=== PATIENT | female | born 1945 | race Caucasian/White ===

== ENCOUNTER 2016-12-15 17:56 | Emergency (ER) | payer MEDICARE, BC ==
--- NOTE | ~2016-12-15 | CT4 ---
[facility] A Service of [facility] & [facility] RADIOLOGY TEXT RESULTS PATIENT: SHELLY PRO LOCATION: [facility] : 49 UNIT #: [id number] AGE: [address]: Kasandra Liu MD SEX: F ORDER DR: [id number] [facility] [address] [place], [place] [address] [id number] E MR#: [id number] Acc #: [id number] NAME: SHELLY PRO : 1945 SEX: F STUDY DATE/TIME: 12/15/2016 2357 UNIT: [facility] ROOM: STUDY DESCRIPTION: CT Abd and Pelv Wo Cont Attending Physician: Kasandra Liu M.D. Ordering Physician: Kasandra Liu M.D. Primary Care Physician: No Primary Care Physician MEDICAL IMAGING REPORT This report is preliminary unless electronic signature is present EXAM Abdomen and pelvis CT, 12/15 at 2357. INDICATION Right side flank pain radiating to the back that started yesterday. TECHNIQUE Axial images were obtained through the abdomen and pelvis without contrast. Multiplanar reformats were obtained. This CT exam was performed with one or more of the following radiation dose reduction techniques: automatic exposure control, adjustment of mA and/or kV according to patient size, and iterative reconstruction. COMPARISON No comparison. FINDINGS ABDOMEN: There is emphysema. There is a small right pleural effusion with some atelectasis or pneumonia in the right lower lobe. Small hiatal hernia is present. Unopacified GI tract is otherwise grossly normal. Cholecystectomy. The exam is motion degraded. No renal or ureteral stones are seen. There is no hydronephrosis. There is a small cyst in the medial segment of the left hepatic lobe. There is extensive atherosclerotic disease. There is infrarenal abdominal aortic ectasia measuring up to 2.3 cm. PELVIS: Detail is obscured by streak artifact from the patient's left hip arthroplasty. The appearance of the arthroplasty hardware is not significantly changed from radiographs dated 03/24/2014. The appendix appears normal. The remainder of the unopacified GI tract is grossly normal, as well. Solid pelvic organs unremarkable. There is extensive lumbar degenerative disease with spondylolisthesis at L4-5. There is some STS. [facility] A Service of [facility] & [facility] RADIOLOGY TEXT RESULTS PATIENT: SHELLY PRO LOCATION: [facility] : 49 UNIT #: [id number] AGE: [address]: Kasandra Liu MD SEX: F ORDER DR: sclerosis in multiple vertebral bodies most pronounced at L2 but also seen in L1 and L3. This may all be related to degenerative disease. It could also reflect Paget disease. Metastatic disease or lymphoma is in the differential diagnosis but this is felt to be unlikely based on the remainder of the bones and the lack of any evidence of malignancy elsewhere. IMPRESSION 1. Emphysema with right lower lobe atelectasis or infiltrate and a small volume of right pleural fluid. 2. Extensive atherosclerotic disease with infrarenal abdominal aortic ectasia. No renal or ureteral stones. No hydronephrosis. 3. Cholecystectomy and left hip arthroplasty. 4. Unopacified GI tract is grossly normal, including the appendix. 5. Sclerosis and 3 lumbar vertebral bodies is nonspecific but probably benign and related to degenerative disease. Differential diagnosis does include Paget disease or even lymphoma or metastatic disease. However, neoplasm is considered less likely given the appearance of the remainder of the visualized skeleton and the lack of any soft tissue abnormalities in the abdomen or pelvis. Consider nonemergent bone scan for follow up. Dictated by... Jimmie Méndez Jr., M.D. THIS IS AN ELECTRONICALLY VERIFIED REPORT Jimmie Méndez Jr., M.D. at 12/16/2016 9:21 PM DEJUAN/nona TD: 12/16/2016 11:56 JOB #: [id number] MEDICAL IMAGING REPORT Page 1 of 1 COPY
--- NOTE | ~2016-12-15 | CR72 ---
[facility] A Service of [facility] & [facility] RADIOLOGY TEXT RESULTS PATIENT: SHELLY PRO LOCATION: [facility] : 49 UNIT #: [id number] AGE: [address]: Kasandra Liu MD SEX: F ORDER DR: [id number] [facility] [address] [place], [place] [address] [id number] E MR#: [id number] Acc #: [id number] NAME: SHELLY PRO : 1945 SEX: F STUDY DATE/TIME: 12/15/2016 23:06 UNIT: [facility] ROOM: STUDY DESCRIPTION: CR Chest Single View Portable Attending Physician: Kasandra Liu M.D. Ordering Physician: Kasandra Liu M.D. Primary Care Physician: No Primary Care Physician MEDICAL IMAGING REPORT This report is preliminary unless electronic signature is present EXAM Portable chest 12/15 23:06 INDICATION Chest pain and back pain for 2 days. History of hypertension and emphysema. FINDINGS AP portable chest compared with 07/01/2015. There is emphysema with mild bibasilar atelectasis. Cardiac and mediastinal contours are normal. No pneumothorax is seen. There is severe degenerative disease in the shoulders. IMPRESSION Emphysema with mild atelectasis in both lung bases. Dictated by... Jimmie Méndez Jr., M.D. THIS IS AN ELECTRONICALLY VERIFIED REPORT Jimmie Méndez Jr., M.D. at 12/16/2016 9:21 PM DEJUAN/sammie TD: 12/16/2016 11:45 JOB #: [id number] MEDICAL IMAGING REPORT Page 1 of 1 COPY
[~2016-12-15 17:56] MED LIST: BACLOFEN10 MG PO; CATAPRES0.1 MG PO; LASIX20 MG PO; LORTAB 10-5001 EACH PO; MOBIC15 MG PO; NON-ASPIRIN EX500 M2 PO; TACROLIMUS1 MG PO; TRAMADOL HCL50 M1 PO; VICODIN 5/500 T1 TAB PO; VITAMIN B122500 MCG PO
[2016-12-15 19:41] LABS: BASOPHIL# 0.1 X10e3 (0-0.3); BASOPHIL% 0.5 % (0-2.5); DIFF IND NO; HEMATOCRIT 47.5 % (35.0-45.0); HEMOGLOBIN 15.8 gm/dL (12.0-16.0); LYMPHOCYTE% 10.3 % (17.0-45.0); MEAN CELL VOLUME 88.9 FL (83-96); MEAN CORPUSCULAR HEMOGLOBIN 29.6 PG (28-34); MEAN CORPUSCULAR HGB CONC 33.3 g/dL (30-36); MEAN PLATELET VOLUME 7.7 FL (6.5-11.5); MONOCYTE# 0.6 X10e3 (0-1.0); MONOCYTE% 6.1 % (3.0-12.0); NEUTROPHIL# 7.8 X10e3 (1.5-7.1); NEUTROPHIL% 83.1 % (40-75); PLATELET COUNT 257 X10e3 (140-420); RED BLOOD COUNT 5.34 X10e (3.90-5.30); RED CELL DISTRIBUTION WIDTH 14.2 % (11.0-15.5); WHITE BLOOD COUNT 9.3 X10e3 (4.0-10.5)
[2016-12-15 20:12] LABS: ALBUMIN SERUM 3.9 g/dL (3.5-5.0); BILIRUBIN, DIRECT 0.2 mg/dL (0.0-0.2); BILIRUBIN,INDIRECT 1.3 mg/dL (0.0-0.9); BILIRUBIN,TOTAL 1.5 mg/dL (0.2-2.0); BUN/CREATININE RATIO 11.25; CALCIUM SERUM 9.2 mg/dL (8.4-10.2); CREATININE SERUM 0.8 mg/dL (0.6-1.4); GLOM FILT RATE Estimated 75.3 mL/min (>60); POTASSIUM 4.5 mmol/L (3.5-5.1); PROTEIN TOTAL SERUM 7.9 g/dL (6.0-8.3)
[2016-12-15 23:30] LABS: URINE SOURCE CLEAN CATCH
[2016-12-15 23:44] LABS: URINE APPEARANCE TURBID; URINE BILIRUBIN NEG (NEG); URINE BLOOD NEG (NEG); URINE COLOR YELLOW; URINE GLUCOSE NEG (NEG); URINE KETONE 2+ (NEG); URINE LEUKOCYTE ESTERASE 1+ (NEG); URINE NITRATE NEG (NEG); URINE PROTEIN 1+ (NEG); URINE SPECIFIC GRAVITY 1.019 (1.003-1.035); URINE UROBILINOGEN 0.2 MG/DL (NEG)
[2016-12-15 23:52] LABS: CULTURE INDICATED? YES; URINE BACTERIA AUWI 3+ (NEGATIVE); URINE SQUAMOUS EPITHELIAL CELL MANY /[HPF]
[2016-12-16 00:04] LABS: U HYALINE CASTS AUWI 0-2 /[LPF]
== END 2016-12-16 01:30 | disposition home or self-care (01) ==
LOC: CED 17:56
PROVIDERS: Emergency Medicine
DX: R10.9 Unspecified abdominal pain (principal); J18.9 Pneumonia, unspecified organism; I10 Essential (primary) hypertension; J44.9 Chronic obstructive pulmonary disease, unspecified; Z86.19 Personal history of other infectious and parasitic diseases; F17.210 Nicotine dependence, cigarettes, uncomplicated; Z88.8 Allergy status to other drugs, medicaments and biological substances; Z88.0 Allergy status to penicillin
CPT/HCPCS: 36415; 51702; 71010; 74176; 80048; 80076; 81003; 85025; 87086; 99285; J1885

== ENCOUNTER 2017-02-04 22:20 | Emergency (ER) | payer MEDICARE ==
[~2017-02-04] VITALS: Ht 157.5 cm; Wt 64.0 kg
--- NOTE | ~2017-02-04 | CR141 ---
[facility] A Service of [facility] & [facility] RADIOLOGY TEXT RESULTS PATIENT: SHELLY PRO LOCATION: [facility] : 49 UNIT #: [id number] AGE: [address]: Tulio Price SEX: F ORDER DR: [id number] [facility] [address] [place], [place] [address] [id number] E MR#: [id number] Acc #: [id number] NAME: SHELLY PRO : 1945 SEX: F STUDY DATE/TIME: 02/04/2017 23:09 UNIT: [facility] ROOM: STUDY DESCRIPTION: CR Hand Min 3 Views Lt Attending Physician: Tulio Price P.A.-C. Ordering Physician: Tulio Price P.A.-C. Primary Care Physician: No Primary Care Physician MEDICAL IMAGING REPORT This report is preliminary unless electronic signature is present EXAM Left hand, 02/04/2017. HISTORY 71-year-old female complaining of left hand pain beginning earlier today. No reported acute injury. TECHNIQUE Three-view left hand series. FINDINGS No fracture, dislocation or other acute osseous abnormality. 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 IMPRESSION 1. No acute osseous abnormality. 2. 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 Dictated by... Misha Kathleen M.D. THIS IS AN ELECTRONICALLY VERIFIED REPORT Misha Kathleen M.D. at 02/05/2017 9:57 PM CHUCK/leandro TD: 02/05/2017 09:58 JOB #: [id number] MEDICAL IMAGING REPORT Page 1 of 1 COPY
== END 2017-02-05 00:10 | disposition home or self-care (01) ==
LOC: CFTX 22:20 → CED 22:20 → CFTX 23:28
DX: S60.222A Contusion of left hand, initial encounter (principal); Z88.0 Allergy status to penicillin; F17.200 Nicotine dependence, unspecified, uncomplicated; W22.8XXA Striking against or struck by other objects, initial encounter; Y92.009 Unspecified place in unspecified non-institutional (private) residence as the place of occurrence of the external cause
CPT/HCPCS: 73130; 99283